=== PATIENT | female | born 1950 | race Caucasian/White ===

== ENCOUNTER → 2016-08-01 | Outpatient (CLI) | payer BC ==
[~2016-08-01] MED LIST: CALC-388 PO; CHOL20009 PO; LISI-461 PO; MULT-506 PO; SIMV20TA5 PO
--- NOTE | 2016-08-01 16:06 | MAMMOGRAPHY REPORT ---
BILATERAL DIGITAL SCREENING MAMMOGRAM WITH CAD: 08/01/2016 CLINICAL HISTORY: Routine screening. Patient has no complaints. TECHNIQUE: Bilateral CC and MLO views were obtained. Current study was also evaluated with a Comput er Aided Detection (CAD) system. COMPARISON: Comparison is made to exams dated: 07/30/2015 mammogram, 05/07/2015 mammogram, 07/25/2013 ma mmogram, 07/28/2014 mammogram, 07/24/2012 mammogram, and 07/12/2011 mammogram - [facility] nter. BREAST COMPOSITION: There are scattered areas of fibroglandular density in both breasts. FINDINGS: A linear scar marker overlies the anterior periareolar left breast. There are stable deloris gn-appearing calcifications in the right breast. No new suspicious mass, architectural distortion o r cluster of microcalcifications is seen. IMPRESSION: ACR BI-RADS CATEGORY 1: NEGATIVE There is no mammographic evidence of malignancy. A 1 year screening mammogram is recommended. The p atient will receive written notification of the results. Approximately 10% of breast cancers are not detected with mammography. A negative mammographic repor t should not delay biopsy if a clinically suggestive mass is present. Fely Burns M.D. ay/:08/01/2016 15:10:00 [employer]: Ella MILLAN(R)(M), [facility] letter sent: Normal 1/2 BI-RADS Code: ACR BI-RADS Category 1: Negative
== END | disposition home or self-care (01) ==
LOC: C.MAMM 10:39
PROVIDERS: ATTEND Obstetrics & Gynecology
DX: Z12.31 Encounter for screening mammogram for malignant neoplasm of breast (principal)

== ENCOUNTER → 2017-03-10 | Outpatient (CLI) | payer BC ==
--- NOTE | 2017-03-10 10:53 | DIAGNOSTIC IMAGING REPORT ---
MRI OF THE BRAIN WITHOUT CONTRAST CLINICAL HISTORY: Migraine headache with language impairment. COMPARISON STUDY: None. TECHNIQUE: Utilizing a 1.5 Roberta magnet and dedicated coil, multiplanar, multiecho imaging of the brain was performed without IV contrast. FINDINGS: There are no foci of restricted diffusion. No acute intracranial hemorrhage, midline shift or mass effect is present. Brain volume is normal for age. Ventricular system is normal. Basilar cisterns are patent. Flow-voids for the major intracranial vessels are present. There are no intracranial masses or pathologic enhancement. Minimal white matter T2 hypertense foci suggest small vessel disease. There is fluid within the bilateral mastoid air cells, right greater than left. Mild to moderate mucosal thickening of the sinuses is noted. No air-fluid levels are present. IMPRESSION: 1. No acute intracranial findings. 2. Minimal small vessel disease and mild atrophy. Unremarkable MRI of the brain for age. 3. Small to moderate amount of fluid within the right mastoid are cells and small amount of fluid within left mastoid air cells. 4. Mild sinus mucosal thickening. Electronically signed by: Artemio Arroyo M.D. 03/10/2017 10:52 AM Dictated Date/Time: 03/10/2017 10:47 AM
== END | disposition home or self-care (01) ==
LOC: C.MRIBC 09:22
PROVIDERS: ATTEND Internal Medicine
DX: G43.909 Migraine, unspecified, not intractable, without status migrainosus (principal); H74.8X3 Other specified disorders of middle ear and mastoid, bilateral

== ENCOUNTER → 2017-05-05 | Outpatient (CLI) | payer BC | END | disposition home or self-care (01) | LOC: C.PAPS 14:30 | PROVIDERS: ATTEND Obstetrics & Gynecology | DX: Z01.419 Encounter for gynecological examination (general) (routine) without abnormal findings (principal); Z78.0 Asymptomatic menopausal state ==

== ENCOUNTER → 2017-08-03 | Outpatient (CLI) | payer BC ==
--- NOTE | 2017-08-04 07:48 | MAMMOGRAPHY REPORT ---
BILATERAL DIGITAL SCREENING MAMMOGRAM TOMOSYNTHESIS WITH CAD: 08/03/2017 CLINICAL HISTORY: Routine screening. Patient has no complaints. TECHNIQUE: Breast tomosynthesis in addition to standard 2D mammography was performed. Current study was also evaluated with a Computer Aided Detection (CAD) system. COMPARISON: Comparison is made to exams dated: 08/01/2016 mammogram, 07/30/2015 mammogram, 05/07/2015 deborah mogram, 11/04/2014 mammogram, 07/28/2014 mammogram, and 07/25/2013 mammogram - [facility] BREAST COMPOSITION: There are scattered areas of fibroglandular density in both breasts. FINDINGS: No suspicious masses, calcifications, or areas of architectural distortion are noted in ei ther breast. There has been no significant interval change compared to prior exams. A linear scar ma rker denotes a scar on the left anterior breast. Bilateral benign-appearing calcifications are not s ignificantly changed. IMPRESSION: ACR BI-RADS CATEGORY 2: BENIGN There is no mammographic evidence of malignancy. A 1 year screening mammogram is recommended. The pa tient will receive written notification of the results. Approximately 10% of breast cancers are not detected with mammography. A negative mammographic report should not delay biopsy if a clinically suggestive mass is present. Joann Chris M.D. /:08/03/2017 13:32:29 Call Or Contact Centre Operator: Lisa MILLAN(Janina)(Aryan)(BD), [facility] letter sent: Normal 1/2 BI-RADS Code: ACR BI-RADS Category 2: Benign
== END | disposition home or self-care (01) ==
LOC: C.MAMM 09:20
PROVIDERS: ATTEND Obstetrics & Gynecology
DX: Z12.31 Encounter for screening mammogram for malignant neoplasm of breast (principal)

== ENCOUNTER 2025-01-30 14:48 | Observation (INO) ==
[2025-01-30 15:20] LABS: Hematocrit (blood only) 42.3 % (37.0-47.0); Hemoglobin 14.5 g/dl (12.0-16.0); Immature Granulocytes # (auto) 0.02 K/uL (0.01-0.20); Immature Granulocytes % (auto) 0.3 %; Mean Corpuscular Hemoglobin 29.7 pg (25.0-34.0); Mean Corpuscular Volume 86.7 fL (80.0-100.0); Platelet Count 209 K/uL (130-400); RDW Standard Deviation 39.0 fL (36.4-46.3); Red Blood Count 4.88 M/uL (4.20-5.40); White Blood Count 7.44 K/ul (4.8-10.8)
--- NOTE | 2025-01-30 15:28 | XRay Report ---
XR chest 1V portable CLINICAL HISTORY: Chest pain, nonspecific COMPARISON STUDY: None FINDINGS: Heart size and pulmonary vasculature are normal. No consolidation or pleural effusion. No p neumothorax. IMPRESSION: No acute findings. ACT 112: Negative or not required by law. Electronically signed by: Mike Liao M.D. 01/30/2025 3:27 PM
[2025-01-30 15:38] LABS: Alanine Aminotransferase 28.0 U/L (7-52); Albumin Globulin Ratio 1.5 (0.9-2); Albumin Level 4.5 gm/dl (3.4-5.0); Alkaline Phosphatase 81.0 U/L (34-104); Anion Gap 7.0 (3-11); Bilirubin,Total 0.3 mg/dl (0.2-1.0); Blood Urea Nitrogen 12.0 mg/dl (6-23); Calcium 10.4 mg/dl (8.6-10.3); Carbon Dioxide 26.0 mmol/L (21-32); Chloride 101.0 mmol/L (98-107); Creatinine Clr Calc Pharmacy 65.2 ml/min; Globulin 3.0 gm/dl (2.5-4.0); Glucose 112.0 mg/dl (70-99(Fasting)); Lipase 28.0 U/L (11-82); Potassium 3.7 mmol/L (3.5-5.1); Sodium 134.0 mmol/L (136-145); Total Protein 7.5 gm/dl (6.0-8.3)
[2025-01-30 15:45] LABS: INR 1.0 (0.9-1.1); Prothrombin Time 10.9 Seconds (9.0-12.0)
[2025-01-30 16:16] LABS: Appearance Urine Clear (Clear); Glucose Urine UA Negative (Negative)
--- NOTE | 2025-01-30 16:25 | Emergency Department Note ---
Impression & Plan Chest pain, Hypertensive urgency ED Provider Note HISTORY OF PRESENT ILLNESS: Patient is a 74-year-old female presenting with chest pain and hypertension. Patient reports that she recently had her lisinopril increased to 20 mg. She states that she has been taking it as prescribed, but she has also been monitoring her blood pressure for a blood pressure log for her doctor, and her blood pressures have been significantly elevated. She states that for the last few days she has been having intermittent episodes of chest pressure. She locates the pain in the substernal region. Denies any alleviating or exacerbating factors to the chest pain. Denies ever having pain like this before. Denies any history of cardiac stents. Denies any DVT or PE history. She is not on any anticoagulation or antiplatelet therapies. She states that extensive family history of heart disease. She currently rates her chest pain at a 2 out of 10. ROS: as above PHYSICAL EXAM: Constitutional: Patient appears in no acute distress. HENT: Head: Normocephalic and atraumatic. Eyes: EOMI, PERRL Mouth/Throat: Mucous membranes moist. Neck: Trachea midline. Neck supple. Cardiovascular: RRR, No murmurs, rubs or gallops. Intact distal pulses. Pulmonary/Chest: No respiratory distress. Breath sounds clear and equal bilaterally. No wheezes or rales Abdominal: Abdomen soft, no tenderness, rebound or guarding. Musculoskeletal: No edema, tenderness or deformity noted. Skin: Warm and dry. No rash, erythema, pallor or cyanosis Psychiatric: Appropriate mood and affect for situation. Neurological: Alert and keenly responsive. CN II-XII grossly intact, moving all extremities equally and fully. MDM: - Vitals signs showed hypertension - History obtained via patient. History as above. - Chronic conditions affecting care: HTN - Differential diagnoses include, but are not limited to: Acute coronary syndrome; pulmonary embolism; dissection; tension pneumothorax; esophageal rupture; pneumonia - Order placed for continuous cardiac monitoring. At this time, monitor showed rate of 88 bpm with normal sinus rhythm, per my interpretation. - External medical records reviewed. Primary care visit note dated 01/13/2025 was reviewed. Patient was seen for a appointment for postop clearance for an upcoming cataract surgery. She had her lisinopril dose increased from 15 mg to 20 mg daily at that visit. - EKG image interpreted by myself showed normal sinus rhythm. Rate 82 bpm. QT 360. No acute ischemic changes. - Laboratory workup interpreted by myself showed normal WBC; normal PT/INR; stable electrolytes other than slight hyponatremia (Na 134) and slight hypercalcemia (Ca 10.4); normal AST/ALT; normal troponin; normal BNP; normal lipase - CXR image reviewed interpreted by myself is negative pneumonia, per my interpretation. - UA negative for infection or blood - Patient given 5 mg IV hydralazine on initial arrival with minimal improvement in her blood pressure. She was given additional 10 mg IV hydralazine with improvement in her blood pressure from 220s systolic to 170s. - Discussed results with the patient. Will admit to hospitalist service for further chest pain workup and further blood pressure management. - Discussion was had with bottle caser about patient's case and need for admission - Hospitalist consulted for admission - Patient admitted to [facility] hospitalist service for further evaluation and management. ASSESSMENT AND PLAN: Diagnosis: chest pain; hypertensive urgency Plan: admit Past Med/Surg History Problem List (Updated 01/30/25 @ 17:29 by Lucy Mark MD) Hypertensive urgency (Acute) Chest pain (Acute) Elevated glucose Hypertension (06/26/12) H/O right breast biopsy (02/04/20) Needle localization right breast biopsy. Dr. Reyna 02/04/2020 Left hip pain Encounter for health maintenance examination Vitamin D deficiency Radial scar of breast Pure hypercholesterolemia (06/26/12) Medical History Acute bronchitis Angular cheilitis due to bacterial infection Arthritis Anal irritation Diarrhea Uncontrolled hypertension Tooth infection History of TMJ disorder High cholesterol Cervical radiculopathy Surgical History H/O oral surgery History of tooth extraction History of colonoscopy History of blepharoplasty History of 3 sections H/O breast surgery History of dilation and curettage History of tubal ligation Family History Mother Throat cancer Father Cardiac disorder Denies family history of Ovarian cancer Breast cancer Colorectal cancer Social History Smoking Status: Never smoker Second Hand Exposure: Yes (PARENTS HEAVY SMOKERS); Do You Dip or Chew Tobacco: No; Hx Alcohol Use: Yes Alcohol type: wine Hx Substance Use: No Preferred Language: Vietnamese Communication Ability: Effective Visual Impairment: No Limitations Hearing Ability: Use of Hearing Aid Routeman Required: No Beliefs That Will Affect Care: None marital status: Current Living Situation: Spouse and Family Current Living Situation Comment: [place] EXCEPT FOR WEEKENDS current occupational status: retired Feels Safe at Home: Yes Childhood Exposure to Second-Hand Smoke: Yes (fATHER AND MOTHER) Diet: regular Physical Activity Frequency: Other Seatbelt Use: always Assistive Devices: Glasses and Hearing Aid - Bilateral Allergies Allergies Allergy/AdvReac Type Severity Reaction Status Date / Time No Known Allergies Allergy Verified 01/22/25 08:59 Home Meds Home Medications Medication Instructions Recorded Confirmed calcium carbonate (Calcium 500) 500 mg PO DAILY 02/14/19 01/22/25 cholecalciferol (vitamin D3) 50 50 mcg PO DAILY 02/14/19 01/22/25 mcg (2,000 unit) capsule multivitamin (Daily Multi-Vitamin 1 tab PO DAILY 02/14/19 01/22/25 tablet) omega-3 fatty acids [Fish Oil] PO DAILY 02/19/24 01/22/25 Previous Rx's Medication Instructions Recorded rosuvastatin 10 mg tablet (Crestor) 10 mg PO DAILY #90 tabs 07/22/24 lisinopril 20 mg tablet 20 mg PO QAM #90 tabs 01/22/25 Results & Data (ED) Vital Signs Vital Signs - 24 hr 01/30/25 14:48 01/30/25 14:52 01/30/25 15:24 Temperature 36.7 C Temperature Source Temporal Artery Scan Pulse Rate 87 65 Pulse Rate [Right Finger] 74 Pulse Rate from SpO2 Sensor Respiratory Rate 20 20 Blood Pressure 220/126 H Blood Pressure [Right Arm] 210/112 H Blood Pressure Mean 157 Blood Pressure Mean [Right Arm] 144 Pulse Oximetry 97 97 Oxygen Delivery Method Room Air Sepsis Recent Fever Within 48 Hours No Sepsis New/Unexplained Change in Mental Status N/A Sepsis Action Taken by Nursing No Action Required 01/30/25 15:25 01/30/25 15:25 01/30/25 15:45 Temperature Temperature Source Pulse Rate 74 Pulse Rate [Right Finger] Pulse Rate from SpO2 Sensor Respiratory Rate 20 Blood Pressure 181/104 H Blood Pressure [Right Arm] Blood Pressure Mean 142 Blood Pressure Mean [Right Arm] Pulse Oximetry 97 Oxygen Delivery Method Room Air Room Air Sepsis Recent Fever Within 48 Hours Sepsis New/Unexplained Change in Mental Status Sepsis Action Taken by Nursing 01/30/25 15:45 01/30/25 15:45 01/30/25 15:45 Temperature Temperature Source Pulse Rate Pulse Rate [Right Finger] Pulse Rate from SpO2 Sensor Respiratory Rate Blood Pressure 181/104 H 181/104 H 181/104 H Blood Pressure [Right Arm] Blood Pressure Mean 142 142 142 Blood Pressure Mean [Right Arm] Pulse Oximetry Oxygen Delivery Method Sepsis Recent Fever Within 48 Hours Sepsis New/Unexplained Change in Mental Status Sepsis Action Taken by Nursing 01/30/25 15:45 01/30/25 15:45 01/30/25 15:51 Temperature Temperature Source Pulse Rate 76 75 Pulse Rate [Right Finger] Pulse Rate from SpO2 Sensor 75 75 Respiratory Rate 13 12 Blood Pressure 181/104 H Blood Pressure [Right Arm] Blood Pressure Mean 142 Blood Pressure Mean [Right Arm] Pulse Oximetry 96 97 Oxygen Delivery Method Sepsis Recent Fever Within 48 Hours Sepsis New/Unexplained Change in Mental Status Sepsis Action Taken by Nursing 01/30/25 15:58 01/30/25 16:00 01/30/25 16:00 Temperature Temperature Source Pulse Rate 74 Pulse Rate [Right Finger] Pulse Rate from SpO2 Sensor 74 Respiratory Rate 15 Blood Pressure 171/97 H 177/124 H Blood Pressure [Right Arm] Blood Pressure Mean 137 144 Blood Pressure Mean [Right Arm] Pulse Oximetry 97 Oxygen Delivery Method Sepsis Recent Fever Within 48 Hours Sepsis New/Unexplained Change in Mental Status Sepsis Action Taken by Nursing 01/30/25 16:00 01/30/25 16:00 01/30/25 16:00 Temperature Temperature Source Pulse Rate Pulse Rate [Right Finger] Pulse Rate from SpO2 Sensor Respiratory Rate Blood Pressure 177/124 H 177/124 H 177/124 H Blood Pressure [Right Arm] Blood Pressure Mean 144 144 144 Blood Pressure Mean [Right Arm] Pulse Oximetry Oxygen Delivery Method Sepsis Recent Fever Within 48 Hours Sepsis New/Unexplained Change in Mental Status Sepsis Action Taken by Nursing 01/30/25 16:00 01/30/25 16:12 01/30/25 16:15 Temperature Temperature Source Pulse Rate 74 72 Pulse Rate [Right Finger] Pulse Rate from SpO2 Sensor 74 73 Respiratory Rate 17 13 Blood Pressure 177/124 H Blood Pressure [Right Arm] Blood Pressure Mean 144 Blood Pressure Mean [Right Arm] Pulse Oximetry 97 97 Oxygen Delivery Method Sepsis Recent Fever Within 48 Hours Sepsis New/Unexplained Change in Mental Status Sepsis Action Taken by Nursing 01/30/25 16:15 01/30/25 16:15 01/30/25 16:15 Temperature Temperature Source Pulse Rate Pulse Rate [Right Finger] Pulse Rate from SpO2 Sensor Respiratory Rate Blood Pressure 176/99 H 176/99 H 176/99 H Blood Pressure [Right Arm] Blood Pressure Mean 137 137 137 Blood Pressure Mean [Right Arm] Pulse Oximetry Oxygen Delivery Method Sepsis Recent Fever Within 48 Hours Sepsis New/Unexplained Change in Mental Status Sepsis Action Taken by Nursing 01/30/25 16:15 01/30/25 16:15 01/30/25 16:21 Temperature Temperature Source Pulse Rate 77 Pulse Rate [Right Finger] Pulse Rate from SpO2 Sensor 78 Respiratory Rate 12 Blood Pressure 176/99 H 176/99 H Blood Pressure [Right Arm] Blood Pressure Mean 137 137 Blood Pressure Mean [Right Arm] Pulse Oximetry 97 Oxygen Delivery Method Sepsis Recent Fever Within 48 Hours Sepsis New/Unexplained Change in Mental Status Sepsis Action Taken by Nursing 01/30/25 16:30 01/30/25 16:30 01/30/25 16:30 Temperature Temperature Source Pulse Rate Pulse Rate [Right Finger] Pulse Rate from SpO2 Sensor Respiratory Rate Blood Pressure 154/85 H 154/85 H 154/85 H Blood Pressure [Right Arm] Blood Pressure Mean 126 126 126 Blood Pressure Mean [Right Arm] Pulse Oximetry Oxygen Delivery Method Sepsis Recent Fever Within 48 Hours Sepsis New/Unexplained Change in Mental Status Sepsis Action Taken by Nursing 01/30/25 16:30 01/30/25 16:30 01/30/25 16:30 Temperature Temperature Source Pulse Rate 75 Pulse Rate [Right Finger] Pulse Rate from SpO2 Sensor 75 Respiratory Rate 13 Blood Pressure 154/85 H 154/85 H Blood Pressure [Right Arm] Blood Pressure Mean 126 126 Blood Pressure Mean [Right Arm] Pulse Oximetry 97 Oxygen Delivery Method Sepsis Recent Fever Within 48 Hours Sepsis New/Unexplained Change in Mental Status Sepsis Action Taken by Nursing 01/30/25 16:42 01/30/25 16:45 01/30/25 16:45 Temperature Temperature Source Pulse Rate 84 Pulse Rate [Right Finger] Pulse Rate from SpO2 Sensor 84 Respiratory Rate 10 L Blood Pressure 171/83 H 171/83 H Blood Pressure [Right Arm] Blood Pressure Mean 112 112 Blood Pressure Mean [Right Arm] Pulse Oximetry 97 Oxygen Delivery Method Sepsis Recent Fever Within 48 Hours Sepsis New/Unexplained Change in Mental Status Sepsis Action Taken by Nursing 01/30/25 16:45 01/30/25 16:45 01/30/25 16:45 Temperature Temperature Source Pulse Rate Pulse Rate [Right Finger] Pulse Rate from SpO2 Sensor Respiratory Rate Blood Pressure 171/83 H 171/83 H 171/83 H Blood Pressure [Right Arm] Blood Pressure Mean 112 112 112 Blood Pressure Mean [Right Arm] Pulse Oximetry Oxygen Delivery Method Sepsis Recent Fever Within 48 Hours Sepsis New/Unexplained Change in Mental Status Sepsis Action Taken by Nursing 01/30/25 16:45 01/30/25 16:51 01/30/25 17:00 Temperature Temperature Source Pulse Rate 83 85 84 Pulse Rate [Right Finger] Pulse Rate from SpO2 Sensor 84 84 84 Respiratory Rate 10 L 15 15 Blood Pressure Blood Pressure [Right Arm] Blood Pressure Mean Blood Pressure Mean [Right Arm] Pulse Oximetry 97 98 98 Oxygen Delivery Method Sepsis Recent Fever Within 48 Hours Sepsis New/Unexplained Change in Mental Status Sepsis Action Taken by Nursing 01/30/25 17:00 01/30/25 17:00 01/30/25 17:00 Temperature Temperature Source Pulse Rate Pulse Rate [Right Finger] Pulse Rate from SpO2 Sensor Respiratory Rate Blood Pressure 164/93 H 164/93 H 164/93 H Blood Pressure [Right Arm] Blood Pressure Mean 125 125 125 Blood Pressure Mean [Right Arm] Pulse Oximetry Oxygen Delivery Method Sepsis Recent Fever Within 48 Hours Sepsis New/Unexplained Change in Mental Status Sepsis Action Taken by Nursing 01/30/25 17:00 01/30/25 17:00 01/30/25 17:12 Temperature Temperature Source Pulse Rate 88 Pulse Rate [Right Finger] Pulse Rate from SpO2 Sensor 89 Respiratory Rate 8 L Blood Pressure 164/93 H 164/93 H Blood Pressure [Right Arm] Blood Pressure Mean 125 125 Blood Pressure Mean [Right Arm] Pulse Oximetry 97 Oxygen Delivery Method Sepsis Recent Fever Within 48 Hours Sepsis New/Unexplained Change in Mental Status Sepsis Action Taken by Nursing 01/30/25 17:15 01/30/25 17:15 01/30/25 17:15 Temperature Temperature Source Pulse Rate Pulse Rate [Right Finger] Pulse Rate from SpO2 Sensor Respiratory Rate Blood Pressure 170/95 H 170/95 H 170/95 H Blood Pressure [Right Arm] Blood Pressure Mean 134 134 134 Blood Pressure Mean [Right Arm] Pulse Oximetry Oxygen Delivery Method Sepsis Recent Fever Within 48 Hours Sepsis New/Unexplained Change in Mental Status Sepsis Action Taken by Nursing 01/30/25 17:15 01/30/25 17:15 01/30/25 17:15 Temperature Temperature Source Pulse Rate 85 Pulse Rate [Right Finger] Pulse Rate from SpO2 Sensor 84 Respiratory Rate 10 L Blood Pressure 170/95 H 170/95 H Blood Pressure [Right Arm] Blood Pressure Mean 134 134 Blood Pressure Mean [Right Arm] Pulse Oximetry 97 Oxygen Delivery Method Sepsis Recent Fever Within 48 Hours Sepsis New/Unexplained Change in Mental Status Sepsis Action Taken by Nursing 01/30/25 17:21 Temperature Temperature Source Pulse Rate 88 Pulse Rate [Right Finger] Pulse Rate from SpO2 Sensor 88 Respiratory Rate 10 L Blood Pressure Blood Pressure [Right Arm] Blood Pressure Mean Blood Pressure Mean [Right Arm] Pulse Oximetry 98 Oxygen Delivery Method Sepsis Recent Fever Within 48 Hours Sepsis New/Unexplained Change in Mental Status Sepsis Action Taken by Nursing Laboratory Data 01/30/25 15:06 01/30/25 15:06 Lab Results 01/30/25 01/30/25 Range/Units 15:06 16:00 WBC 7.44 (4.8-10.8) K/ul RBC 4.88 (4.20-5.40) M/uL Hgb 14.5 (12.0-16.0) g/dl Hct 42.3 (37.0-47.0) % MCV 86.7 (80.0-100.0) fL MCH 29.7 (25.0-34.0) pg MCHC 34.3 (32.0-36.0) g/dL RDW Std Deviation 39.0 (36.4-46.3) fL RDW Coeff of Lee 12.2 (11.5-14.5) % Plt Count 209 (130-400) K/uL MPV 10.6 (9.4-12.4) fL Immature Gran % (Auto) 0.3 % Neut % (Auto) 56.8 % Lymph % (Auto) 30.6 % Young % (Auto) 7.5 % Eos % (Auto) 4.0 % Baso % (Auto) 0.8 % Neut # (Auto) 4.22 (1.40-6.50) K/uL Lymph # (Auto) 2.28 (1.20-3.40) K/uL Young # (Auto) 0.56 (0.11-0.59) K/uL Eos # (Auto) 0.30 (0.00-0.50) K/uL Baso # (Auto) 0.06 (0.00-0.20) K/uL Immature Gran # (Auto) 0.02 (0.01-0.20) K/uL PT 10.9 (9.0-12.0) Seconds INR 1.0 (0.9-1.1) Sodium 134 L (136-145) mmol/L Potassium 3.7 (3.5-5.1) mmol/L Chloride 101 (98-107) mmol/L Carbon Dioxide 26 (21-32) mmol/L Anion Gap 7 (3-11) BUN 12 (6-23) mg/dl Creatinine 0.88 (0.6-1.2) mg/dl Est Cr Clr Drug Dosing 65.2 ml/min eGFR 69.78 BUN/Creatinine Ratio 13.6 (10-20) Glucose 112 H (70-99(Fasting)) mg/dl Calcium 10.4 H (8.6-10.3) mg/dl Total Bilirubin 0.3 (0.2-1.0) mg/dl AST 25 (13-39) U/L ALT 28 (7-52) U/L Alkaline Phosphatase 81 (34-104) U/L Troponin I High Sens 3.5 (0-14) pg/ml B-Natriuretic Peptide 29 (0-100) pg/ml Total Protein 7.5 (6.0-8.3) gm/dl Albumin 4.5 (3.4-5.0) gm/dl Globulin 3.0 (2.5-4.0) gm/dl Albumin/Globulin Ratio 1.5 (0.9-2) Lipase 28 (11-82) U/L Urine Color Yellow Urine Appearance Clear (Clear) Urine pH 7.5 (4.5-7.5) Ur Specific [place] 1.004 (1.000-1.030) Urine Protein Negative (Negative) Urine Glucose (UA) Negative (Negative) Urine Ketones Negative (Negative) Urine Blood Negative (Negative) Urine Nitrite Negative (Negative) Urine Bilirubin Negative (Negative) Urine Urobilinogen Negative (Negative) Ur Leukocyte Esterase Negative (Negative) Urine Comment Administered Medications Discontinued Medications Hydralazine HCl (Hydralazine Hcl 20 Mg/Ml Vial) 5 mg IV NOW ONE Stop: 01/30/25 15:11 Last Admin: 01/30/25 15:18 Dose: 5 mg Documented By: CHANCE Hydralazine HCl (Hydralazine Hcl 20 Mg/Ml Vial) 10 mg IV NOW STA Stop: 01/30/25 15:58 Last Admin: 01/30/25 16:30 Dose: 10 mg Documented By: ELIZABETH Imaging Data Radiologist's Impression: Chest X-Ray 01/30/25 15:03 XR chest 1V portable CLINICAL HISTORY: Chest pain, nonspecific COMPARISON STUDY: None FINDINGS: Heart size and pulmonary vasculature are normal. No consolidation or pleural effusion. No pneumothorax. IMPRESSION: No acute findings. ACT 112: Negative or not required by law. Electronically signed by: Mike Liao M.D. 01/30/2025 3:27 PM Discharge Plan Visit Data Chief Complaint: Chest Pain Stated Complaint: HIGH BP AND CHEST PRESSURE ED Provider: Lucy Mark Discharge Problem: Chest pain, Hypertensive urgency Patient Disposition: Admitted As Inpatient Condition: Fair Forms Stand Alone Forms: My [employer] Prescriptions Prescriptions: No Action rosuvastatin [Crestor] 10 mg tablet 10 mg PO DAILY Qty: 90 3RF cholecalciferol (vitamin D3) 50 mcg (2,000 unit) capsule 50 mcg PO DAILY multivitamin [Daily Multi-Vitamin] tablet 1 tab PO DAILY calcium carbonate [Calcium 500] 500 mg calcium (1,250 mg) tablet 500 mg PO DAILY lisinopril 20 mg tablet 20 mg PO QAM Qty: 90 3RF omega-3 fatty acids [Fish Oil] PO DAILY Referrals Referrals: Pro,Rishi Grayson MD [Primary Care Provider] -
--- NOTE | 2025-01-30 18:52 | History & Physical Report ---
Date of Service January 30, 2025 Assessment & Plan (1) Hypertension: (2) Hypercalcemia: (3) Pure hypercholesterolemia: Plan #hypertensionwhile "on paper" things could fit for hypertensive urgency given her numbers and her chest painclinically, I suspect what is actually going on is a baseline of mildly uncontrolled hypertension (as evidenced by her chronic readings of about 150/80)and then when her pressures were higher than expected with the pressure of a "finish line" of her looming cataract surgery, she then started to have more of a stress-induced hypertension/whitecoat effect, which worsened because her numbers continue to be higher than expected. She wondered if the chest pressure was anxiety related, I concurespecially given that she does not show any EKG/troponin changes consistent with angina, her symptoms get better with exertion, and she shows no findings of CHF. Will follow overnight, but will manage with outpatient regimenadding carvedilol on top of her lisinopril. Anticipate home tomorrow. Given her good exercise tolerance/normal EKG/etc., I do not see where this would get in the way of her cataract surgery. Check TSH for completeness. #hypercalcemiaprobably just a mild asymptomatic/nonrelevant finding, but repeat in the morning. #Hyperlipidemiacontinue rosuvastatin #DVT prophylaxisambulation History of Present Illness Chief Complaint: Elevated blood pressure Primary Care Provider: Rishi Harrington MD patient is a very pleasant 74-year-old female coming in with elevated blood pressure. She notes that over the last year she would check her blood pressure occasionally/intermittently, and usually would see a number that was a little bit higher than she wanted and so she would not check for a while. When asked to quantify this, usually she remembers about a 150/80 reading. Last week she was at a preop appointment for cataract surgery, her pressure was higher than expected, and after she sat for a little while and they rechecked it was higher still. Her lisinopril was raised, and she was asked to follow her blood pressure at home. At home she has noticed pressures continuing to creep up, and now it is causing her stress. Intermittently she has had some chest pressure. Interestingly, however, she walks fairly regularly and does not have any chest pressure when she walksactually noting that she feels better with exercise. She has not had any known vascular endpoints, although she does have several family members who have had coronary disease. Allergies Allergy/AdvReac Type Severity Reaction Status Date / Time No Known Allergies Allergy Verified 01/22/25 08:59 Home Medications Medication Instructions Recorded Confirmed Type calcium carbonate (Calcium 500) 500 mg PO DAILY 02/14/19 01/30/25 History cholecalciferol (vitamin D3) 50 50 mcg PO DAILY 02/14/19 01/30/25 History mcg (2,000 unit) capsule multivitamin (Daily Multi-Vitamin 1 tab PO DAILY 02/14/19 01/30/25 History tablet) rosuvastatin 10 mg tablet (Crestor) 10 mg PO DAILY #90 tabs 07/22/24 01/30/25 Rx lisinopril 20 mg tablet 20 mg PO QAM #90 tabs 01/22/25 01/30/25 Rx omega-3 fatty acids 0 mg PO DAILY 01/30/25 01/30/25 History Past Med/Surg History Problem List (Updated 01/30/25 @ 18:55 by Alexandro Littlejohn DO) Hypercalcemia Hypertensive urgency (Acute) Chest pain (Acute) Elevated glucose Hypertension (06/26/12) H/O right breast biopsy (02/04/20) Needle localization right breast biopsy. Dr. 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 /FOUND ON XRAY - PT INSTRUCTED TO NOTIFY SURGEON OFFICE OF THIS History of TMJ disorder RESOLVED High cholesterol Cervical radiculopathy PT DENIES SPINE PROBLEMS OR BACK/ NECK PINCHED NERVES Surgical History H/O oral surgery History of tooth extraction History of colonoscopy History of blepharoplasty BILAT History of 3 sections 82, 84, 89 H/O breast surgery LEFT History of dilation and curettage History of tubal ligation Family History Mother Throat cancer Father Cardiac disorder Denies family history of Ovarian cancer Breast cancer Colorectal cancer Social History Smoking Status: Never smoker Second Hand Exposure: Yes (PARENTS HEAVY SMOKERS); Do You Dip or Chew Tobacco: No; Hx Alcohol Use: Yes Alcohol type: wine Hx Substance Use: No Preferred Language: [place] Citizen Communication Ability: Effective Visual Impairment: No Limitations Hearing Ability: Use of Hearing Aid Supervisor Wheel Shop Required: No Beliefs That Will Affect Care: None marital status: Current Living Situation: Spouse and Family Current Living Situation Comment: [place] EXCEPT FOR WEEKENDS current occupational status: retired Feels Safe at Home: Yes Childhood Exposure to Second-Hand Smoke: Yes (fATHER AND MOTHER) Diet: regular Physical Activity Frequency: Other Seatbelt Use: always Assistive Devices: Glasses and Hearing Aid - Bilateral Review of Systems Review of Systems: All systems reviewed & are unremarkable except as noted in HPI & below Physical Exam Physical Exam: General she is awake alert oriented x 3 pleasant no acute distress. HEENT normocephalic atraumatic mucous membranes moist. Cardio is regular without rubs murmurs gallops. Lungs clear without rales rhonchi or wheezes no accessory muscle use good effort. No conversational dyspnea. Skin without rashes pallor or icterus. Extremities without cyanosis clubbing or edema. Neuro without focal deficits or lateralizing signs. EKG without ischemic changes, troponin normal, creatinine normal, hemoglobin normal, calcium mildly elevated 10.6, chest x-ray without CHF. Results & Data Results & Data Vital Signs (Past 12 Hours) Vital Signs Temp Pulse Pulse Resp BP BP Pulse Ox 01/30/25 18:30 87 12 96 01/30/25 18:30 195/118 H 01/30/25 18:30 195/118 H 01/30/25 18:21 86 11 L 97 01/30/25 18:15 169/101 H 01/30/25 18:15 169/101 H 01/30/25 18:15 169/101 H 01/30/25 18:15 169/101 H 01/30/25 18:15 169/101 H 01/30/25 18:15 85 11 L 97 01/30/25 18:12 84 14 96 01/30/25 18:01 190/108 H 01/30/25 18:01 190/108 H 01/30/25 18:01 190/108 H 01/30/25 18:01 190/108 H 01/30/25 18:01 190/108 H 01/30/25 18:00 97 01/30/25 18:00 85 15 190/108 H 97 01/30/25 17:45 193/98 H 01/30/25 17:45 193/98 H 01/30/25 17:45 193/98 H 01/30/25 17:45 193/98 H 01/30/25 17:45 193/98 H 01/30/25 17:45 83 8 L 97 01/30/25 17:42 88 15 98 01/30/25 17:30 184/116 H 01/30/25 17:30 184/116 H 01/30/25 17:30 184/116 H 01/30/25 17:30 184/116 H 01/30/25 17:30 184/116 H 01/30/25 17:30 83 12 97 01/30/25 17:21 88 10 L 98 01/30/25 17:15 85 10 L 97 01/30/25 17:15 170/95 H 01/30/25 17:15 170/95 H 01/30/25 17:15 170/95 H 01/30/25 17:15 170/95 H 01/30/25 17:15 170/95 H 01/30/25 17:12 88 8 L 97 01/30/25 17:00 164/93 H 01/30/25 17:00 164/93 H 01/30/25 17:00 164/93 H 01/30/25 17:00 164/93 H 01/30/25 17:00 164/93 H 01/30/25 17:00 84 15 98 01/30/25 16:51 85 15 98 01/30/25 16:48 85 18 184/116 H 97 01/30/25 16:45 83 10 L 97 01/30/25 16:45 171/83 H 01/30/25 16:45 171/83 H 01/30/25 16:45 171/83 H 01/30/25 16:45 171/83 H 01/30/25 16:45 171/83 H 01/30/25 16:42 84 10 L 97 01/30/25 16:30 75 13 97 01/30/25 16:30 154/85 H 01/30/25 16:30 154/85 H 01/30/25 16:30 154/85 H 01/30/25 16:30 154/85 H 01/30/25 16:30 154/85 H 01/30/25 16:21 77 12 97 01/30/25 16:15 176/99 H 01/30/25 16:15 176/99 H 01/30/25 16:15 176/99 H 01/30/25 16:15 176/99 H 01/30/25 16:15 176/99 H 01/30/25 16:15 72 13 97 01/30/25 16:12 74 17 97 01/30/25 16:00 177/124 H 01/30/25 16:00 177/124 H 01/30/25 16:00 177/124 H 01/30/25 16:00 177/124 H 01/30/25 16:00 177/124 H 01/30/25 16:00 74 15 97 01/30/25 15:58 171/97 H 01/30/25 15:51 75 12 97 01/30/25 15:45 76 13 96 01/30/25 15:45 181/104 H 01/30/25 15:45 181/104 H 01/30/25 15:45 181/104 H 01/30/25 15:45 181/104 H 01/30/25 15:45 181/104 H 01/30/25 15:25 74 20 97 01/30/25 15:25 01/30/25 15:24 65 01/30/25 14:52 98.1 F 87 20 220/126 H 97 01/30/25 14:48 74 20 210/112 H 97 O2 Del Method 01/30/25 18:30 01/30/25 18:30 01/30/25 18:30 01/30/25 18:21 01/30/25 18:15 01/30/25 18:15 01/30/25 18:15 01/30/25 18:15 01/30/25 18:15 01/30/25 18:15 01/30/25 18:12 01/30/25 18:01 01/30/25 18:01 01/30/25 18:01 01/30/25 18:01 01/30/25 18:01 01/30/25 18:00 01/30/25 18:00 01/30/25 17:45 01/30/25 17:45 01/30/25 17:45 01/30/25 17:45 01/30/25 17:45 01/30/25 17:45 01/30/25 17:42 01/30/25 17:30 01/30/25 17:30 01/30/25 17:30 01/30/25 17:30 01/30/25 17:30 01/30/25 17:30 01/30/25 17:21 01/30/25 17:15 01/30/25 17:15 01/30/25 17:15 01/30/25 17:15 01/30/25 17:15 01/30/25 17:15 01/30/25 17:12 01/30/25 17:00 01/30/25 17:00 01/30/25 17:00 01/30/25 17:00 01/30/25 17:00 01/30/25 17:00 01/30/25 16:51 01/30/25 16:48 Room Air 01/30/25 16:45 01/30/25 16:45 01/30/25 16:45 01/30/25 16:45 01/30/25 16:45 01/30/25 16:45 01/30/25 16:42 01/30/25 16:30 01/30/25 16:30 01/30/25 16:30 01/30/25 16:30 01/30/25 16:30 01/30/25 16:30 01/30/25 16:21 01/30/25 16:15 01/30/25 16:15 01/30/25 16:15 01/30/25 16:15 01/30/25 16:15 01/30/25 16:15 01/30/25 16:12 01/30/25 16:00 01/30/25 16:00 01/30/25 16:00 01/30/25 16:00 01/30/25 16:00 01/30/25 16:00 01/30/25 15:58 01/30/25 15:51 01/30/25 15:45 01/30/25 15:45 01/30/25 15:45 01/30/25 15:45 01/30/25 15:45 01/30/25 15:45 01/30/25 15:25 Room Air 01/30/25 15:25 Room Air 01/30/25 15:24 01/30/25 14:52 Room Air 01/30/25 14:48 Code Status & VTE Plan VTE Prophylaxis Plan VTE Prophylaxis will be ordered: No Reason for no VTE drug order: Treatment not indicated PG Care Time/CCT Total # of Minutes Spent Total Time Spent with Patient: Total time spent is greater than 50% in coordination of care (as documented) at patient's floor/unit and/or counseling patient: Coding Level of Care Code 25968 INT INP/OBS CARE 3/75MIN Diagnoses Hypertension I10 Hypercalcemia E83.52 Pure hypercholesterolemia E78.00
[2025-01-30] MEDS ORDERED: ALUMINUM/MAGNESIUM SUSP 30 ML UDC PO PRN (21:20)
[2025-01-30] MEDS ORDERED: MELATONIN 3 MG TAB PO PRN (21:20)
[2025-01-30] MEDS ORDERED: MAGNESIUM HYDROXIDE SUSP 30 ML UDC PO PRN (21:20)
[2025-01-30] MEDS ORDERED: ONDANSETRON INJ 2 MG/ML 2 ML VIAL IV PRN (21:20)
[2025-01-30] MEDS ORDERED: POLYETHYLENE (MIRALAX) 17 GM PACK PO PRN (21:20)
[2025-01-31] MEDS: ACETAMINOPHEN 325 MG TAB PO PRN (05:22)
[2025-01-31 07:10] VITALS: RESP 18; TEMP 98.1
[2025-01-31 07:56] LABS: Anion Gap 9.0 (3-11); Blood Urea Nitrogen 11.0 mg/dl (6-23); Calcium 10.0 mg/dl (8.6-10.3); Carbon Dioxide 23.0 mmol/L (21-32); Chloride 106.0 mmol/L (98-107); Creatinine Clr Calc Pharmacy 75.1 ml/min; Glucose 108.0 mg/dl (70-99(Fasting)); Potassium 4.1 mmol/L (3.5-5.1); Sodium 138.0 mmol/L (136-145)
[2025-01-31 08:11] LABS: Thyroid Stimulating Hormone 3.883 uIu/ml (0.300-4.500)
[2025-01-31] MEDS: MULTIVITAMIN TAB PO SCH (08:47)
[2025-01-31] MEDS: ROSUVASTATIN CALCIUM 10 MG TAB PO SCH (08:47)
[2025-01-31] MEDS: OMEGA-3 (PURIFIED FISH OIL) 1 GM CAP PO SCH (08:47)
[2025-01-31] MEDS: CHOLECALCIFEROL 25 MCG (1000 UNITS) TAB PO SCH (08:48)
[2025-01-31] MEDS ORDERED: CALCIUM CARBONATE 1250MG TAB PO SCH (09:00)
--- NOTE | 2025-01-31 09:26 | Discharge Summary ---
Date of Service January 31, 2025 Admission HPI Per Admitting Provider patient is a very pleasant 74-year-old female coming in with elevated blood pressure. She notes that over the last year she would check her blood pressure occasionally/intermittently, and usually would see a number that was a little bit higher than she wanted and so she would not check for a while. When asked to quantify this, usually she remembers about a 150/80 reading. Last week she was at a preop appointment for cataract surgery, her pressure was higher than expected, and after she sat for a little while and they rechecked it was higher still. Her lisinopril was raised, and she was asked to follow her blood pressure at home. At home she has noticed pressures continuing to creep up, and now it is causing her stress. Intermittently she has had some chest pressure. Interestingly, however, she walks fairly regularly and does not have any chest pressure when she walksactually noting that she feels better with exercise. She has not had any known vascular endpoints, although she does have several family members who have had coronary disease. Admission Exam Per Admitting Provider General she is awake alert oriented x 3 pleasant no acute distress. HEENT normocephalic atraumatic mucous membranes moist. Cardio is regular without rubs murmurs gallops. Lungs clear without rales rhonchi or wheezes no accessory muscle use good effort. No conversational dyspnea. Skin without rashes pallor or icterus. Extremities without cyanosis clubbing or edema. Neuro without focal deficits or lateralizing signs. EKG without ischemic changes, troponin normal, creatinine normal, hemoglobin normal, calcium mildly elevated 10.6, chest x-ray without CHF Principal Diagnosis Uncontrolled HTN Discharge Exam General she is awake alert oriented x 3 pleasant no acute distress. HEENT normocephalic atraumatic mucous membranes moist. Cardio is regular without rubs murmurs gallops. Lungs clear without rales rhonchi or wheezes no accessory muscle use good effort. No conversational dyspnea. Skin without rashes pallor or icterus. Extremities without cyanosis clubbing or edema. Neuro without focal deficits or lateralizing signs Discharge Data Allergies Allergy/AdvReac Type Severity Reaction Status Date / Time No Known Allergies Allergy Verified 01/22/25 08:59 Consultations 01/30/25 17:30 ED Decision to Admit Stat Hospital Course (1) Hypertension: Plan #hypertensionwhile "on paper" things could fit for hypertensive urgency given her numbers and her chest painclinically, I suspect what is actually going on is a baseline of mildly uncontrolled hypertension (as evidenced by her chronic readings of about 150/80)and then when her pressures were higher than expected with the pressure of a "finish line" of her looming cataract surgery, she then started to have more of a stress-induced hypertension/whitecoat effect, which worsened because her numbers continue to be higher than expected. She wondered if the chest pressure was anxiety related, I concurespecially given that she does not show any EKG/troponin changes consistent with angina, her symptoms get better with exertion, and she shows no findings of CHF. Will follow overnight, but will manage with outpatient regimenadding carvedilol on top of her lisinopril.Given her good exercise tolerance/normal EKG/etc., I do not see where this would get in the way of her cataract surgery. DC PLAN: Continue home Lisinopril and added CoReg for now. Follow up with PCP 1-2 weeks, can adjust medication. #hypercalcemiaprobably just a mild asymptomatic/nonrelevant finding, repeat was normal #Hyperlipidemiacontinue rosuvastatin Total Time Total Time Spent Total Time Spent (In Minutes): See attending's attestation Discharge Plan Discharge Items Patient Disposition: Home - Self-Care Reason For Visit: UNCONTROLLED HTN Discharge Diagnosis: Hypertension controlled Condition on Discharge: Fair Activity: Resume your previous activity Non-emergency contact: Primary Care Provider Call non-emergency contact if: your symptoms worsen Follow-up/Referrals: Pro,Rishi Grayson MD [Primary Care Provider] - 02/04/25 2:30 pm Diet: Low Sodium (2gm) Addtl Attending Provider Instructions: You were admitted to the hospital for high blood pressure. Your blood pressure number were as high as 195/118 when you came in. Since you also had some chest pain, even though not typical for heart event, we admitted and ruled out heart attacks with EKG and Blood troponin level(Which were both reassuring). You got one dose of intravenous medication in ED, we added New medication called Coreg and all numbers after you were admitted were reassuring. Since you have upcoming cataract surgery, we intensified your regimen. Blood pressure below 160/100 should be ok with the surgery, Please talk to your eye doctor beforehand. A discharge summary will be sent to your primary care physician to ensure continuity of care. Please bring this discharge summary with you to your next office appointment so that your provider can review it at that time. Medications: Your medication list has been reviewed and reconciled upon discharge to ensure accuracy and continuity of care. An updated list of all your medications is included with your hospital discharge paperwork. Please review this list closely and make note of any changes to your medications. 1. CONTINUE ALL HOME MEDICATIONS 2. Coreg 3.125 PO BID to continue. Follow up appointments: - Make a follow up appointment with your PCP within the next week. It is very important that you follow up with them [facility] -If you do not find appointment with your primary care, you can make a follow up appointment with Dr. Jamee Pantoja MD PGY2 physician vice president, [facility]. Call [facility] family medicine office at [phone]. - Keep all of your follow up appointments as already scheduled. If you cannot make an appointment, notify your provider. CONTACT YOUR PRIMARY CARE PROVIDER if you experience any of the following: - Difficulty following your treatment plan - Difficulty taking any of your medications CALL 911 OR GO TO THE EMERGENCY DEPARTMENT if you experience any of the following: - Sudden, severe abdominal pain or nausea/vomiting - Severe chest pain or chest pain that radiates to your jaw or arm - Sudden, severe shortness of breath or difficulty breathing Pending Studies at Discharge: No Stand-Alone Forms: My [email or web address], Smoking Cessation Medications and DC Order Prescriptions: New carvedilol 3.125 mg tablet 3.125 mg PO BID 30 Days Qty: 60 0RF Rx Instructions: must administer with a meal/food Continued rosuvastatin [Crestor] 10 mg tablet 10 mg PO DAILY Qty: 90 3RF cholecalciferol (vitamin D3) 50 mcg (2,000 unit) capsule 50 mcg PO DAILY Patient Comments: 01/30- otc unable to verify multivitamin [Daily Multi-Vitamin] tablet 1 tab PO DAILY Patient Comments: 01/30- otc unable to verify calcium carbonate [Calcium 500] 500 mg calcium (1,250 mg) tablet 500 mg PO DAILY Patient Comments: 01/30- otc unable to verify lisinopril 20 mg tablet 20 mg PO QAM Qty: 90 3RF omega-3 fatty acids 0 mg PO DAILY Patient Comments: 01/30- otc unable to verify Discharge Orders: Discharge Order (Routine); Ordered 01/31/25 Ordered By: Jamee Ochoa/Other Patient Handouts: Carvedilol Oral Tablet, DASH Plan Eat Heart Healthy Food, Blood Pressure Check Steps Admission Data Admit Date/Time: 01/30/25 18:45 Attending Provider: Alexandro Littlejohn Admit Provider: Alexandro Littlejohn Primary Care Provider: Rishi Harrington Other Providers: Alexandro Littlejohn Other Interventions: Discharge Summary Assessment (RN) Last Done: 01/31/25 11:03 Supervising Physician Co-Signing Physician Notes I personally examined the patient and verified all eisenberg points of history and exam, discussed case, and agree with decision making with Dr Pantoja Feeling good. Would like to go home. Vitals noted, in general she is awake and alert pleasant no distress. HEENT normocephalic atraumatic mucous membranes moist. Breathing unlabored no accessory muscle use good effort. Skin without rashes pallor or icterus. Neuro without focal deficits. Hypertensioninitial concern on possible hypertensive urgency on admissionI suspect with hindsight this was unfounded. See above. Safe/stable for home on p.o. regimen. Otherwise as above.
[2025-01-31 11:13] VITALS: BP 144/92; PULSE 67; O2SAT 98
--- NOTE | 2025-01-31 12:34 | Electrocardiogram Report ---
Test Reason : Blood Pressure : */* mmHG Vent. Rate : 82 BPM Atrial Rate : 82 BPM P-R Int : 182 ms QRS Dur : 72 ms QT Int : 360 ms P-R-T Axes : 71 37 66 degrees QTcB Int : 420 ms Normal sinus rhythm Possible Left atrial enlargement Borderline ECG When compared with ECG of 29-Jan-2020 08:54, No significant change was found Confirmed by Rishi Yost ([id number]) on 01/31/2025 12:33:46 PM Referred By: Confirmed By: Rishi Yost
--- NOTE | 2025-01-31 16:11 | Billing Data ---
Date of Service January 31, 2025 Coding Level of Care Code 68247 IN/OBS DISCH 30 MIN/LESS
== END 2025-01-31 12:23 | disposition home or self-care (01) ==
LOC: ED 14:48 → 3N 14:48